=== PATIENT | male | born 1990 | race Caucasian/White ===

== ENCOUNTER 2024-04-21 07:16 | Emergency (ER) | payer OTHER, SELFPAY ==
--- NOTE | 2024-04-21 07:22 | ED.GENMED ---
History of Present Illness
General
Chief Complaint: Seizure
Time Seen by Provider: 04/21/24 07:21
History of Present Illness
History of Present Illness:
33 yo male presents from [facility] for evaluation after a witnessed seizure. Pt reportedly detoxing from methamphetamines, cocaine, opiates and ETOH. Last substance use yesterday. Pt was given 2mg IM lorazepam enroute to the hospital via EMS. On arrival
is AO x 3. Reports widespread myalgia, chest pain, SOB. No hx of seizures.
Review of Systems
Review of Systems
Allergies reviewed?: Yes
All Other Systems: ROS reviewed and negative except as documented in HPI and ROS
Phy Exam
Physical Exam
Physical Exam:
GEN: Thin with temporal/zygomatic wasting, NAD
HEENT: Oral mucosa moist, no scleral icterus, no nasal congestion
Cardiac: Tachycardic, no murmurs
Lung: No respiratory distress, no tachypnea, lungs CTAB
MSK: No gross deformity or injuries
Skin: Good color, no pallor or jaundice, no rashes
Neuro: AO x3; CN II-XII grossly intact. BUE strength 5/5 in all lacey, sensation intact and symmetric. BLE strength 5/5 in all lacey, sensation intact and symmetric. Mildly tremulous
Psych: Calm, cooperative
Course
Orders/Labs/Results
Orders:
Orders
04/21/24 07:22
EKG [Electrocardiogram (*1)] Urgent
Reason for Study: Tachycardia
04/21/24 07:23
EKG- Treatment ONCE
04/21/24 07:28
Lactated Ringers [Lr] 1,000 ml IV BOLUS
04/21/24 07:45
Complete Blood Count/With Diff Urgent
Comprehensive Metabolic Panel Urgent
Magnesium Urgent
Abnormal Lab Results
04/21/24
07:45
WBC 20.3 H 10^3/uL
(4.8-10.8)
RDW 14.6 H %
(11.5-14.5)
Plt Count 422 H 10^3/uL
(130-400)
Abs Immat Gran (auto) 0.1 H 10^3/uL
(0-0.05)
Absolute Neuts (auto) 16.8 H 10^3/uL
(1.4-6.5)
Absolute Monos (auto) 1.6 H 10^3/uL
(0.1-0.6)
Neutrophils % 82.8 H %
(42.2-75.2)
Lymphocytes % 8.8 L %
(20.5-51.1)
Creatinine 0.6 L mg/dL
(0.7-1.3)
Glucose 114 H mg/dl
(70-99)
04/21/24 07:45
04/21/24 07:45
Vital Signs
Initial and Last Documented VS:
Initial Vital Signs
Pulse Resp
110 19
04/21/24 07:22 04/21/24 07:22
Last Documented Vital Signs
Temp Pulse Resp BP Pulse Ox
98.4 F 118 35 134/86 100
04/21/24 07:23 04/21/24 11:00 04/21/24 10:00 04/21/24 11:00 04/21/24 07:26
MDM/Problems Addressed
MDM/Problems Addressed:
Pt remained stable in the ED with no further seizure activity. He remains mildly tachycardic however is not markedly hypertensive, diaphoretic or tremulous to suggest severe withdrawal. I did discuss with [facility] medical multani, pt is on detox/withdrawal
protocol with clonidine and clonazepam. At this time he is stable for correctional facility management, any further seizure activity would warrant hospitalization for more aggressive management
Comment
Comment:
EKG independently interpreted by me shows a sinus tachycardia at a rate of [address] changes concerning for ischemia, QTc of 450
*Critical Care Note
Total Time (30-74mins, 75-104mins- exclusive of procedures): Not Applicable
Update Note
Update Note:
Pt discussed with medical multani at [facility]. They can manage withdrawal detox in a limited manner, no ability to acquire phenobarbitol rapidly for home phenobarb taper. Pt will be observed in ED, if reoccurring seizure activity will admit for further
management
ED Attending Note
-
Portions of this chart may have been created with voice recognition software.� Occasional wrong word or��sound alike� substitutions may have occurred due to the inherent limitations of voice recognition software.
Discharge Plan
Departure
Patient Disposition: Home (Routine Discharge)
Date of Disposition: 04/21/24
Time of Disposition: 11:02
Patient with high blood pressure during this ER visit?: No
Discharge Problem:
Multiple substance withdrawal
Instructions: Drug Withdrawal ED
Referrals:
[facility] [Family Provider] -
Activity Restrictions/Additional Instructions:
Artemio will need to be admitted for any further seizure like activity
Interventions
Interventions:
*Risk Screen - Suicide Last Done: 04/21/24 07:31
*General Assessment Last Done: 04/21/24 07:29
*Neglect/Abuse Screening Last Done: 04/21/24 07:29
ED- Fall Risk Assessment Last Done: 04/21/24 07:31
*ED COVID-19 Vaccine History Last Done: 04/21/24 07:29
*Nursing Disposition Last Done: 04/21/24 11:19
ED- Cardiac Assessment Last Done: 04/21/24 07:33
ED- Neurological Assessment Last Done: 04/21/24 07:33
ED- Pulmonary Assessment Last Done: 04/21/24 07:34
Discharge Date and Time
Discharge Date/Time: 04/21/24 11:21
Print Language: MONTSERRATIAN
[2024-04-21 07:23] VITALS: BP 139/79
[2024-04-21 07:25] VITALS: BMI 19.5
[2024-04-21 07:26] VITALS: BP 139/79
[2024-04-21] MEDS: LR 1000 IV (07:47)
[2024-04-21 07:51] LABS: % Basophils 0.2 % (0-2); % Eosinophils 0.1 % (0-6); % Immature Granulocytes 0.4 % (0-0.5); % Lymphocytes 8.8 % (20.5-51.1); % Monocytes 7.7 % (1.7-9.3); % Neutrophils 82.8 % (42.2-75.2); Absolute Immature Granulocytes 0.1 10^3/uL (0-0.05); Absolute Lymphocytes 1.8 10^3/uL (1.2-3.4); Absolute Monocytes 1.6 10^3/uL (0.1-0.6); Absolute Neutrophils 16.8 10^3/uL (1.4-6.5); Hematocrit 40.4 % (39.0-52.0); Hemoglobin 13.7 g/dL (13.0-18.0); Mean Corp Hgb Conc. 33.9 g/dL (33.0-37.0); Mean Corpuscular Hgb 27.1 pg (27.0-31.0); Nucleated Red Blood Cells % 0 % (-); Platelet Count 422 10^3/uL (130-400); Red Blood Cell Count 5.05 10^6/uL (4.70-6.10); Red Cell Dist. Width 14.6 % (11.5-14.5); White Blood Cell Count 20.3 10^3/uL (4.8-10.8)
[2024-04-21 08:00] VITALS: BP 129/78
[2024-04-21 08:03] LABS: ALT (SGPT) 44 U/L (0-50); AST (SGOT) 39 U/L (17-59); Albumin 4.4 g/dl (3.5-5.0); Alkaline Phosphatase 116 U/L (38-126); Blood Urea Nitrogen 16 mg/dl (9-20); Calcium 10.1 mg/dl (8.4-10.2); Carbon Dioxide 27 mmol/L (22-30); Chloride 100 mmol/L (98-107); Estimated Creatinine Clearance > 125 ml/min; Glucose 114 mg/dl (70-99); Magnesium 1.8 mg/dl (1.6-2.3); Potassium 3.5 mmol/L (3.5-5.1); Sodium 137 mmol/L (135-145); Total Bilirubin 1.1 mg/dl (0.2-1.3); Total Protein 8.1 g/dl (6.3-8.2); eGFR > 60.00
[2024-04-21 09:00] VITALS: BP 146/87
[2024-04-21 10:00] VITALS: BP 131/84
[2024-04-21 11:00] VITALS: BP 134/86
== END 2024-04-21 11:21 | disposition home or self-care (01) ==
LOC: EMR 07:16
PROVIDERS: Physician Assistant; EMERGENCY PHYSICIAN Emergency Medicine
DX: F19.239 Other psychoactive substance dependence with withdrawal, unspecified (principal)
CPT/HCPCS: 99284; 96360; 80053; 83735; 85025; 93005

== ENCOUNTER 2024-04-21 20:40 | Inpatient (IN) | payer OTHER, SELFPAY ==
[2024-04-21] VITALS (10 sets, daily range): BP systolic 126–156; BP diastolic 68–93; BMI 20.3; BMI 19.1
--- NOTE | 2024-04-21 16:48 | ED.GENMED ---
History of Present Illness
General
Chief Complaint: Seizure
Source: patient, ambulance crew and other (Security guards)
Time Seen by Provider: 04/21/24 16:30
History of Present Illness
History of Present Illness:
33-year-old male was seen this morning after multiple seizures felt to be withdrawal related. Patient was stable and discharged back to the correction. Earlier this afternoon patient allegedly had 8-10 relatively brief seizures lasting 1 to 2 minutes
with a minimal postictal period. He returns to the ER for further evaluation. He was given 10 of Valium IM with resolution of the symptoms. He currently has no specific complaints except for feeling mildly jittery. He states he does you normally
use fentanyl and alcohol are his primary addiction issues.
Past History
Past History
ED Past Medical History: Other (Alcohol abuse. Substance abuse.)
ED Past Surgical History: Other (Exploratory laparotomy)
Review of Systems
Review of Systems
All Other Systems: Not applicable
Respiratory: Reports no symptoms
Cardiac: Reports no symptoms
ABD/GI: Reports nausea
Phy Exam
Physical Exam
Physical Exam:
GENERAL: Alert and oriented in no apparent distress. Thin. Mildly cachectic. Chronically ill-appearing. Normocephalic atraumatic
EYE: Orbits normal.
NECK: Supple, no thyroid palpable
ENT: Pharynx without erythema. No tongue biting
CARDIAC: Tachycardic and regular no murmur
LUNGS: Clear breath sounds,normal
ABDOMEN: Soft, without focal tenderness or distention
NEUROLOGICAL: Alert and oriented , grossly non-focal
SKIN: Warm and dry, erythema and swelling to the left second toe. Multiple tattoos
MUSCULOSKELETAL: No edema,no deformity.Good color
PSYCH: Relatively cooperative
Course
Orders/Labs/Results
Orders:
Orders
04/21/24 16:31
CT Head W/o Iv Contrast Urgent
Comment:
Reason For Exam: Recurrent seizures
Cardiac Monitoring- Treatment ONCE
Pulse Ox/cont/shift [RESP] Stat
Quantity: 1
04/21/24 16:33
Thiamine Injection 200 mg IV NOW STA
04/21/24 16:54
FOLic ACID [Folvite] 1 mg 0.9% Sodium Chloride 50 ml [Nss] 50 ml IV NOW
04/21/24 17:29
Fentanyl, Urine Urgent
Urine Drug Abuse Screen Urgent
Date Specimen was Collected: 04/21/24
Time Specimen was Collected: 17:26
04/21/24 18:20
Complete Blood Count/With Diff Urgent
04/21/24 18:24
0.9% Sodium Chloride 1000 ml [Nss] 1,000 ml IV BOLUS
04/21/24 18:46
Alcohol Urgent
Magnesium Urgent
Abnormal Lab Results
04/21/24 04/21/24
17:29 18:20
WBC 18.0 H 10^3/uL
(4.8-10.8)
RBC 4.68 L 10^6/uL
(4.70-6.10)
Hgb 12.9 L g/dL
(13.0-18.0)
Hct 35.6 L %
(39.0-52.0)
MCV 76.1 L fL
(80.0-94.0)
RDW 14.7 H %
(11.5-14.5)
Abs Immat Gran (auto) 0.1 H 10^3/uL
(0-0.05)
Absolute Neuts (auto) 14.1 H 10^3/uL
(1.4-6.5)
Absolute Monos (auto) 1.5 H 10^3/uL
(0.1-0.6)
Neutrophils % 78.4 H %
(42.2-75.2)
Lymphocytes % 12.1 L %
(20.5-51.1)
Urine Fentanyl Screen Positive H
(Negative)
U Benzodiazepines Scrn Positive H
(Negative)
04/21/24 18:20
Vital Signs
Initial and Last Documented VS:
Initial Vital Signs
Temp Pulse Resp BP
98.5 F 108 20 133/89
04/21/24 16:40 04/21/24 16:40 04/21/24 16:40 04/21/24 16:40
Last Documented Vital Signs
Temp Pulse Resp BP Pulse Ox
98.5 F 103 31 144/93 71
04/21/24 16:40 04/21/24 18:15 04/21/24 18:15 04/21/24 17:00 04/21/24 18:30
MDM/Problems Addressed
Differential Diagnosis Includes:
Discussed with neurology. Patient returns with recurring seizures. Will give folate thiamine fluids admit for further care. No antiepileptics at this time. Benzos for withdrawal.
*Radiology
Radiology exam reviewed: radiology read reviewed (Negative head CT)
*Pulse Oximetry
Patient hypoxic: no
*Inspector And Sorter Interpretation
Rate: tachycardiac
Interpretation: abnormal
Heart Rate: 110
Rhythm: sinus
*Critical Care Note
Total Time (30-74mins, 75-104mins- exclusive of procedures): Not Applicable
ED Attending Note
-
Portions of this chart may have been created with voice recognition software.� Occasional wrong word or��sound alike� substitutions may have occurred due to the inherent limitations of voice recognition software.
Discharge Plan
Departure
Patient Disposition: Admit
Date of Disposition: 04/21/24
Time of Disposition: 17:23
Presentation/result/management discussed w/ accepting MD/DO: Neurology
Discharge Problem:
Recurrent seizures, Multiple substance withdrawal, Cellulitis left second toe
Prescriptions:
No Action
quetiapine [Seroquel] 25 mg Tablet
25 mg PO DAILY
ascorbic acid (vitamin C) [Vitamin C] 1,000 mg Tablet
1,000 mg PO DAILY
clonidine HCl 0.1 mg Tablet
0.1 mg PO TID
ondansetron HCl [Zofran] 4 mg Tablet
4 mg PO TIDPRN PRN (Reason: nasuea)
thiamine HCl (vitamin B1) 100 mg Tablet
100 mg PO DAILY
Theragen Tablet
1 tab PO DAILY
diphenhydramine HCl [Benadryl] 25 mg Capsule
25 mg PO BID
clonazepam 2 mg Tablet
2 mg PO BID
folic acid 1 mg Tablet
1 mg PO DAILY
quetiapine [Seroquel] 50 mg Tablet
50 mg PO HS
magnesium oxide 400 mg magnesium Tablet
400 mg PO DAILY
diazepam [Valium] 5 mg/mL Syringe
10 mg MS ONCE
Referrals:
[facility] [Family Provider] -
Interventions
Interventions:
*Risk Screen - Suicide Last Done: 04/21/24 16:44
*General Assessment Last Done: 04/21/24 16:44
*Neglect/Abuse Screening Last Done: 04/21/24 16:44
ED- Fall Risk Assessment Last Done: 04/21/24 16:41
*ED COVID-19 Vaccine History Last Done: 04/21/24 16:43
ED- Cardiac Assessment Last Done: 04/21/24 16:47
ED- Neurological Assessment Last Done: 04/21/24 16:47
ED- Pulmonary Assessment Last Done: 04/21/24 16:47
Discharge Date and Time
Print Language: UKRAINIAN
[2024-04-21 17:50] LABS: Amphetamines Negative (Negative); Barbiturates Negative (Negative); Benzodiazepines Positive (Negative); Buprenorphine Negative (Negative); Cocaine Negative (Negative); Marijuana Negative (Negative); Methadone Negative (Negative); Methamphetamines Negative (Negative); Opiates Negative (Negative); Phencyclidine Negative (Negative); Tricyclic Antidepressants Negative (Negative)
[2024-04-21] MEDS: FOLVITE 50.2000000000000028 MG IV (18:23)
[2024-04-21] MEDS: THIAMINE INJECTION 200 MG IV (18:23)
[2024-04-21] MEDS: NSS 1000 IV ×2 (18:24→21:37)
[2024-04-21 18:25] LABS: Fentanyl, Urine Positive (Negative)
[2024-04-21 18:32] LABS: % Basophils 0.3 % (0-2); % Eosinophils 0.2 % (0-6); % Immature Granulocytes 0.5 % (0-0.5); % Lymphocytes 12.1 % (20.5-51.1); % Monocytes 8.5 % (1.7-9.3); % Neutrophils 78.4 % (42.2-75.2); Absolute Basophils 0.1 10^3/uL (0-0.2); Absolute Immature Granulocytes 0.1 10^3/uL (0-0.05); Absolute Lymphocytes 2.2 10^3/uL (1.2-3.4); Absolute Monocytes 1.5 10^3/uL (0.1-0.6); Absolute Neutrophils 14.1 10^3/uL (1.4-6.5); Hematocrit 35.6 % (39.0-52.0); Hemoglobin 12.9 g/dL (13.0-18.0); Mean Corp Hgb Conc. 36.2 g/dL (33.0-37.0); Mean Corpuscular Hgb 27.6 pg (27.0-31.0); Mean Corpuscular Volume 76.1 fL (80.0-94.0); Nucleated Red Blood Cells % 0 % (-); Platelet Count 376 10^3/uL (130-400); Red Blood Cell Count 4.68 10^6/uL (4.70-6.10); Red Cell Dist. Width 14.7 % (11.5-14.5)
--- NOTE | 2024-04-21 18:57 | PTCARENOTE ---
Correction guards called RN into room and stated pt is having a seizure. RN in room to check on pt. Pt mildly shaking. Telemonitor showing ST 90-100's. RN asked pt his name and and pt answered correctly. RN asked pt to straiten arm for lab
draw which he did without trouble. MD and oncoming RN made aware. Will continue to monitor. 2 Guards at bedside.
[2024-04-21 19:21] LABS: Magnesium 1.8 mg/dl (1.6-2.3)
[2024-04-21 19:25] LABS: Alcohol None Detected
[2024-04-21] MEDS: ANCEF 10 IV (19:29)
--- NOTE | 2024-04-21 19:51 | EDRN ---
corrections called rn to room and stated pt is having another seizure. this rn, charge entry specialist and hospitalist entered room to find pt mildly shaking having 'seizure-like' activity on his left side. pt immediately stopped shaking when his name was called
and looked at this rn. tele monitor showed sinus tach 100-110's, pt did not lose control of his bladder or bowel, did not bite tongue, and answering questions appropriately. hospitalist at bedside and present for event. 2 corrections officers remain
at bedside, awaiting admission orders.
--- NOTE | 2024-04-21 20:15 | HPS.HSE ---
Family Physician
-
Family Physician: Facility [facility]
Chief Complaint
-
Seizures
History of Present Illness
33-year-old man who came to the ER this morning after multiple seizures felt to be withdrawal related. He was initially made stable and was then discharged back to the snf. Then in snf, this afternoon, it was reported that he had 8-10
relatively brief seizures lasting 1 to 2 minutes with a minimal postictal period. He was returned to the ER for further evaluation. In the ED, he was given 10 of Valium IM with initial resolution of the symptoms. He stated to the ER staff that he
does you normally use fentanyl and that alcohol are his primary addiction issues. At the time of my interview, he was nervous, covering himself with the blanket. He had a shaking episode in the room that appeared volitional. When his hand was
dropped, he protected his face. He did not appear to be pos-ictal.
Medical History
Past Medical History
Past Medical History: Reports Other
Additional Past Medical History:
Alcohol abuse.
Substance abuse
Exploratory laparotomy
Past Surgical History: Reports Other
Additional Past Surgical History:
See above
Social History
Unable to obtain full social history at this time due to: Acuity
Family History
Family History: Not pertinent
Allergies / Home Medications
Allergies reflects when Allergies were last updated in [employer].
Home Medications with original date entered in [employer]
Allergy/Medication List:
Allergies
Allergy/AdvReac Type Severity Reaction Status Date / Time
haloperidol [From Haldol] Allergy Unknown Verified 04/21/24 07:18
Home Medications
ascorbic acid (vitamin C) 1,000 mg tablet (Vitamin C) 1,000 mg PO DAILY 04/21/24
clonazepam 2 mg tablet 2 mg PO BID 04/21/24
clonidine HCl 0.1 mg tablet 0.1 mg PO TID 04/21/24
diazepam 5 mg/mL injection syringe 10 mg OR ONCE 04/21/24
diphenhydramine HCl 25 mg capsule (Benadryl) 25 mg PO BID 04/21/24
folic acid 1 mg tablet 1 mg PO DAILY 04/21/24
magnesium oxide 400 mg PO DAILY 04/21/24
ondansetron HCl 4 mg tablet 4 mg PO TIDPRN PRN nasuea 04/21/24
quetiapine 25 mg tablet (Seroquel) 25 mg PO DAILY 04/21/24
quetiapine 50 mg tablet (Seroquel) 50 mg PO HS 04/21/24
therapeutic multivitamin 1 tab PO DAILY 04/21/24
thiamine HCl (vitamin B1) 100 mg tablet 100 mg PO DAILY 04/21/24
Review of Systems
-
Unable to obtain full review of systems at this time due to: Acuity
Physical Exam
Vital Signs
Vital Signs
Temp Pulse Resp BP Pulse Ox
98.5 F 104 34 142/93 71
04/21/24 16:40 04/21/24 20:00 04/21/24 20:00 04/21/24 20:00 04/21/24 18:30
Physical Exam
General: Well Developed, Appears in Distress and Appears Chronically Ill
HEENT: Nose Appears Normal and Ears Appear Normal
Respiratory: Clear
Cardiac: S1/S2, Regular Rhythm and Tachycardia
GI: Soft, Non Tender and Non Distended
Musculoskeletal: No Clubbing, No Cyanosis and No Edema
Skin: Warm and Dry
Neuro: Awake
Psych: Anxious
Laboratory Results
-
04/21/24 18:20
Data Reviewed
-
Lab Data: Labs Reviewed by me
Impression/Plan
-
IMPRESSION:
33 man with reported several seizures, h/o alcohol and substance abuse.
PLAN:
1. Seizures. Likely from withdrawal.
CIWA protocol
ICU admit
Re-eval in am
Neuro consult in am
2. WBC of 18.0 - likely reactive
Follow closely for signs of infection
Re-check in am
Full code (no capacity to discuss code status)
VCD for DVTp
[2024-04-21] MEDS: CATAPRES 0.100000000000000006 MG PO (21:42)
[2024-04-21] MEDS: SEROQUEL 50 MG PO (21:43)
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
[2024-04-22] VITALS (23 sets, daily range): BP systolic 123–150; BP diastolic 68–98; BMI 18.0
--- NOTE | 2024-04-22 01:08 | PTCARENOTE ---
No seizure activity observed.
--- NOTE | 2024-04-22 01:20 | PTCARENOTE ---
sheriff officer out to nurses station to request RN at bedside. Patient observed in bed 'shaking' in upper half of body. Left arm positioned over eyes. When attempting to remove arm from face, patient resisting. Patient talking to RN in normal
tone. Requesting food. Vitals stable.
--- NOTE | 2024-04-22 03:36 | PTCARENOTE ---
Patient c/o pain in left upper back. Scabs observed to be scratched open. Site firm/round/tender. Redness marked to monitor spread. DRY CHAIN PULLER notified. WOC consult placed. AM labs sent.
[2024-04-22 03:49] LABS: Hematocrit 37.4 % (39.0-52.0); Hemoglobin 12.6 g/dL (13.0-18.0); Mean Corp Hgb Conc. 33.7 g/dL (33.0-37.0); Mean Corpuscular Hgb 27.3 pg (27.0-31.0); Mean Corpuscular Volume 81.1 fL (80.0-94.0); Mean Platelet Volume 8.1 fL (7.4-10.4); Platelet Count 349 10^3/uL (130-400); Red Blood Cell Count 4.61 10^6/uL (4.70-6.10); Red Cell Dist. Width 14.6 % (11.5-14.5); White Blood Cell Count 15.6 10^3/uL (4.8-10.8)
[2024-04-22] MEDS: NSS 1000 IV ×2 (03:51→11:37)
[2024-04-22 04:01] LABS: INR 1.12; PT 14.2 Sec (11.4-14.6)
[2024-04-22 04:07] LABS: Blood Urea Nitrogen 9 mg/dl (9-20); Calcium 9.1 mg/dl (8.4-10.2); Carbon Dioxide 25 mmol/L (22-30); Chloride 106 mmol/L (98-107); Creatine Phosphokinase 412 U/L (55-170); Estimated Creatinine Clearance > 125 ml/min; Glucose 96 mg/dl (70-99); Potassium 3.8 mmol/L (3.5-5.1); Sodium 138 mmol/L (135-145); eGFR > 60.00
--- NOTE | 2024-04-22 07:22 | W.PN.HOSP.TC ---
Addendum entered and electronically signed by Paula Hitchcock MD 04/22/24 18:58:
Patient seen and examined independently--agree with plan set forth by Dr. Mason
GENERAL: thin, underweight male in no apparent distress--sleepy
HEENT: NC/AT
HEART: regular rate and rhythm, +S1, +S2, tachycardic
LUNGS : clear to auscultation bilaterally
ABDOM: soft, nontender, nondistended, + bowel sounds
EXT: no cyanosis, clubbing, or edema
NEUROLOGIC: sleepy, minimally interactive (nursing reports just received medications prior my visit)
Suspected seizure activities---Most likely polysubstance withdrawal, UDS positive for fentanyl and benzos---Head CT unremarkable--apprec neuro input, continuous EEG pending--Stop clonazepam, clonidine, diazepam, quetiapine-- continue folic acid and
thiamine, MSAS protocol-Pulmonology assessment and recs appreciated
Mild leukocytosis on admission, WBC of 18.0 - likely reactive--CXR unremarkable--Patient afebrile, vitals WNL.
Mild rhabdomyolysis--CPK 412--from presumed seizures
Full code (no capacity to discuss code status)
DVT prophylaxis: SCD
Original Note:
Today's Communication/Plan
-
Continuous EEG
Folic acid and thiamine continue
Discontinue detox protocol OFFICE MANAGER RECEPTIONIST
MSAS protocol
Assessment / Plan
Assessment / Plan
Assessment: 33 man with reported several seizures, h/o alcohol and substance abuse.
33-year-old male with history of multiple substance abuse (opioid, alcohol, cocaine, benzos) who was seen initially at the ED on a.m. of 04/21 s/p witnessed seizure activities, s/p 2 mg IM lorazepam and subsequently discharged back to the assisted
from the assisted. Was on detox protocol with clonidine and clonazepam at the medical multani of [facility] OFFICE MANAGER RECEPTIONIST. However, UDS positive for fentanyl and benzos, no EtOH.
Impression/Plan:
Suspected sz activity vs malingering
Leukocytosis on adm, improving
Resolved mild thrombocytosis
Mildly elevated CK
UDS positive for fentanyl and bzd
ETOH serum level not detected
Suspected seizure activities.
-Most likely polysubstance withdrawal, UDS positive for fentanyl and benzos.
-Head CT unremarkable
-Continuous EEG per neurology
-Stop clonazepam, clonidine, diazepam, quetiapine, continue folic acid and thiamine.
-MSAS protocol
-Neurology assessment and recs appreciated
-Pulmonology assessment and recs appreciated
-Transfer to telemetry and monitor overnight.
Mild leukocytosis on admission, WBC of 18.0 - likely reactive
-Likely reactive, CXR unremarkable.
-Patient afebrile, vitals WNL.
-CBC and BMP in a.m.
Full code (no capacity to discuss code status)
DVT prophylaxis: SCD
Anticipated Discharge: Within 24 hours
Subjective/Interval History
-
Date of Service: April 22, 2024
Objective Data
-
Labs:
Laboratory Results
04/22/24
03:34
WBC 15.6 H
Hgb 12.6 L
Hct 37.4 L
Plt Count 349
PT 14.2
INR 1.12
Sodium 138
Potassium 3.8
Chloride 106
Carbon Dioxide 25
BUN 9
Creatinine 0.6 L
Glucose 96
Calcium 9.1
Vital Signs:
Tmax 24 HRS
04/21/24
23:25
Temp 98.3 F
Vital Signs
Temp Pulse Resp BP Pulse Ox
98.4 F 84 36 143/84 100
04/22/24 03:14 04/22/24 06:00 04/22/24 06:00 04/22/24 06:00 04/22/24 06:00
I&O
04/21/24 04/22/24 04/23/24
06:59 06:59 06:59
Intake Total 2069
Output Total 2449
Balance -380 / -380
Review of Systems
-
History Source: Patient
All other systems: Not reviewed unless documented
Constitutional: Reports No Symptoms; Denies Fever, Fatigue or Chills
EENT: Reports No Symptoms Reported
Respiratory: Reports No Symptoms; Denies Cough or Trouble Breathing
Cardiac: Reports No Symptoms; Denies Chest Pain or Palpitations
Abdomen/GI: Reports No Symptoms; Denies Abdominal Pain, Nausea, Vomiting, Diarrhea or Constipated
Genitourinary: Reports No Symptoms
Musculoskeletal: Reports No Symptoms
Skin: Reports No Symptoms
Neuro: Reports Seizures
Endocrine: Reports No Symptoms
Hematologic / Lymphatic: Reports No Symptoms
Physical Exam
-
General: Well Developed, No Apparent Distress and Comfortable; Negative Respiratory Distress
HEENT: Normocephalic, Atraumatic and Moist Mucous Membranes
Respiratory: Clear to Auscultation
Cardiac: Regular Rhythm and S1/S2; Negative Murmur, Rub or Gallop
GI: Soft, Nontender, Nondistended and Normal Bowel Sounds; Negative Organomegaly
Rectal: Deferred by Provider
Musculoskeletal: No Clubbing, No Cyanosis and No Edema
Skin: Warm; Negative Rash
Neuro: Awake, Alert, Oriented, AO x 3 and Nonfocal/Grossly Intact
Psych: Calm
Data Reviewed
-
CT Scan: Image personally visualized and interpreted, Report Reviewed by me and Discussed with Physician
Labs: Labs Reviewed by me and Discussed with Physician
Old Records: Reviewed
--- NOTE | 2024-04-22 07:50 | CON.INTV ---
Consultation
Consultation Request
Date/Time Consultation Requested: 04-22-24
Date/Time Consultation Performed: 04-22-24
Requesting Provider: Hospitalist Jennifer
Performing Provider: Dr Salcido
Reason for Consultation: suspected sz activity
Medical History
-
Chief Complaint: suspected sz activity
History of Present Illness:
Mr Artemio Judd is a 33/M adm from long term on 04-21 for suspected recurrent sz activity witnessed by correctional personnel, reportedly 8-10 brief shaking episodes of about 1-2 min and with minimal postictal period. Two correctional officers at
bedside were not present at time of events at long term, they report patient is an inmate since 04-19.
Patient has a h/o substance abuse with reported use of ETOH, methamphetamines, cocaine and opiates, reportedly last use of substance(s) on day prior to incarceration.
Seen at ER in early AM 04-21, EMS administered 2 mg IM lorazepam in route with resolution shaking activity, returned to long term. Brought back to ER on evening of 04-21 for recurrent symptoms, given valium 10 mg IM by EMS in route to ER, showed
resolution of symptom. At ER, witnessed shaking episode that appeared volitional, when his hand was dropped, he protected his face, did not appear in pos-ictal state. First DH adm
Past Medical History
Past Medical History: Other (see A&P for PMH/PSH)
Social History
Tobacco: Former Smoker
Alcohol: Daily
Drug: Cocaine and Other (bzd, methamphetamines)
Personal: Single
Living: [facility]
Employment: Not Employed
Family History
Family History: Unable to Obtain (poor historian)
Allergies / Home Medications
Allergies
Allergy/AdvReac Type Severity Reaction Status Date / Time
haloperidol [From Haldol] Allergy Unknown Verified 04/21/24 07:18
Home Medications
�Medication �Instructions �Recorded �Confirmed �Last Taken �Type
ascorbic acid (vitamin C) 1,000 mg 1,000 mg PO DAILY 04/21/24 04/21/2424 History
tablet (Vitamin C)
clonazepam 2 mg tablet 2 mg PO BID 04/21/24 04/21/24 04/21/24 History
clonidine HCl 0.1 mg tablet 0.1 mg PO TID 04/21/24 04/21/24 04/20/24 History
diazepam 5 mg/mL injection syringe 10 mg NH ONCE 04/21/24 04/21/24 04/21/24 History
diphenhydramine HCl 25 mg capsule 25 mg PO BID 04/21/24 04/21/24 04/21/24 History
(Benadryl)
folic acid 1 mg tablet 1 mg PO DAILY 04/21/24 04/21/24 04/21/24 History
magnesium oxide 400 mg PO DAILY 04/21/24 04/21/24 04/21/24 History
ondansetron HCl 4 mg tablet 4 mg PO TIDPRN PRN nasuea 04/21/24 04/21/24 04/20/24 History
quetiapine 25 mg tablet (Seroquel) 25 mg PO DAILY 04/21/24 04/21/24 04/21/24 History
quetiapine 50 mg tablet (Seroquel) 50 mg PO HS 04/21/24 04/21/24 04/20/24 History
therapeutic multivitamin 1 tab PO DAILY 04/21/24 04/21/24 04/21/24 History
thiamine HCl (vitamin B1) 100 mg 100 mg PO DAILY 04/21/24 04/21/24 04/21/24 History
tablet
Review of Systems
-
Unable to Obtain full review of systems at this time due to: Other (poor historian, not interested in participate fully on interview, marginal cooperation with P/E)
Vitals / Labs / Diagnostic Testing
Vital Signs
Temp Pulse Resp BP Pulse Ox
98.9 F 84 36 143/84 100
04/22/24 07:31 04/22/24 06:00 04/22/24 06:00 04/22/24 06:00 04/22/24 06:00
Lab Data
04/22/24 03:34
04/22/24 03:34
Laboratory Results
04/22/24
03:34
PT 14.2
INR 1.12
Diagnostic Testing:
Physical Exam
-
HEENT: Normocephalic and Moist Mucous Membranes
Cardiovascular: Regular Rhythm, Murmur (n), Peripheral Edema (n), Calf Tenderness (n) and JVD (n)
Respiratory: Clear and Non-Labored Respirations
GI: Soft, Non Distended and Non Tender
Neurology: Oriented, No Motor Deficits and Other (sleepy, arousable)
Skin: Warm
General: Respiratory Distress (n)
Assessment
-
Assessment:
Mr Artemio Judd is a 33/M adm from long term on 04-21 for suspected sz activity witnessed by correctional personnel, reportedly 8-10 brief shaking episodes of about 1-2 min and with minimal postictal period. Two correctional officers at bedside were
not present at time of events at long term, they report patient is an inmate since 04-19. He has a h/o substance abuse with reported use of ETOH, methamphetamines, cocaine and opiates, reportedly last use of substance(s) on day prior to incarceration.
Seen at ER in early AM 04-21, EMS administered 2 mg IM lorazepam in route with resolution shaking activity, returned to long term. Brought back to ER on evening of 04-21 for recurrent symptoms, given valium 10 mg IM by EMS in route to ER, showed
resolution of symptom. At ER, witnessed shaking episode that appeared volitional, when his hand was dropped, he protected his face, did not appear in pos-ictal state. First DH adm
Impression:
Suspected sz activity vs malingering
Leukocytosis on adm, improving
Resolved mild thrombocytosis
Mildly elevated CK
UDS positive for fentanyl and bzd
ETOH serum level not detected
Conditions [employer]ING:
Substance abuse: ETOH, methamphetamines, cocaine and opiates
Plan:
Adm to ICU for suspected sz activity
Remains afebrile, hemodyn and resp porras stable
Keep asp precs
On clonazepam, clonidine, dizepam, quetiapine [employer], continue
IVFs
Portable CXR negative
Head CT s/c negative for acute findings
Neurology consulted, d/w Dr Crook, low suspicion for sz activity
Will check EEG for completeness
Observe off atbs
Expecting transfer to [facility] per [facility] report, will sign off upon transfer
No critical care time charged today
--- NOTE | 2024-04-22 08:04 | PTCARENOTE ---
Pt had 10sec period of shaking. Respiratory rate 40 at that time. No postictal state. PERRL. MSAS 1 (d/t HR)
[2024-04-22] MEDS: VITAMIN C 1000 MG PO (08:24)
[2024-04-22] MEDS: BENADRYL 25 MG PO (08:24)
[2024-04-22] MEDS: THERAGRAN 1 TABLET PO (08:24)
[2024-04-22] MEDS: CATAPRES 0.100000000000000006 MG PO (08:24)
[2024-04-22] MEDS: SEROQUEL 25 MG PO (08:24)
[2024-04-22] MEDS: VITAMIN B1 100 MG PO (08:24)
[2024-04-22] MEDS: MAGNESIUM OXIDE 500 MG PO (08:24)
[2024-04-22] MEDS: FOLVITE 1 MG PO (08:24)
[2024-04-22] MEDS: KLONOPIN 2 MG PO (08:24)
--- NOTE | 2024-04-22 08:25 | CON.NEURO4 ---
Consultation - Neurology 4
-
CONSULTING PHYSICIAN: Siena Crook
REFERRING PHYSICIAN: Hospitalist
DICTATED BY: Siena Crook
DATE/TIME OF REQUEST: 04/22/24
DATE/TIME OF CONSULTATION: 04/22/24
Reason for Consultation: Concern for seizures
History of Present Illness:
The patient is a 33-year-old male with a history of opioid and alcohol abuse who presented to hospital initially with an ED visit on 04/21 after witnessed seizure activity. He was given 2 mg IM lorazepam and upon arrival in the ER reported muscle
pains but was awake and alert with normal mental status. He had been on a detox protocol with clonidine and clonazepam at the [facility].
Patient was discharged back to [facility] and represented later in the day with report of multiple brief seizure episodes around 8-10 which are short lasting and with minimal postictal confusion afterwards. Patient is been
incarcerated since approximately 04/19. History of substance abuse has been with alcohol, amphetamines, cocaine and fentanyl.
Per admitting hospitalist appeared to have seizure-like activity which did not appear physiologic as patient consistently guarded his face from hand dropping on his head.
Patient currently not very awake or interactive but will obey simple commands most of his verbal output is unintelligible.
Past Medical History: Opioid and alcohol abuse
Surgical History: Exploratory laparotomy
Family History: Unknown
Social History: Unknown, presents from incarceration
Allergies: Haloperidol
Review of Symptoms:
Patient denies any fever, headache, chest pain, shortness of breath, GI or symptoms.
Physical Exam:
Thin young middle-age man no overt distress no signs of head or neck trauma, neck with no masses, mouth with no bleeding or obvious deformity or lacerations of the lips, heart rate is regular breathing is unlabored abdomen is soft nontender no lower
extremity edema or joint dislocation seen
Neurologic Examination:
Patient is awake and will inconsistently obey simple commands such as sticking out the tongue, he will answer some simple yes/no questions but much of his speech is unintelligible, does not open eyes to command but is clearly awake
Cranial nerve examination shows pupils 3 to 4 mm equal round react light bilaterally resting gaze midline with no gaze deviation seen extraocular movements are full, face is grossly symmetric tongue is midline
Motor examination shows consistent ability to avoid hitting the face when arms are held above his head bilaterally, moving spontaneously in all extremities in a symmetric manner. Normal muscle tone and bulk. No tremor or abnormal movement.
Reflexes 2+ and symmetric biceps triceps brachialis patella and Achilles Babinski is negative
Unable to assess coordination or gait
Neuro Imaging: CT head non contrast no abnormalities seen
Impressions
1. Polysubstance abuse with the potential for withdrawal
2. Seizure activity suspicious for nonepileptic events although withdrawal from alcohol reproduce alcohol withdrawal seizures
3. Current mental status could be partly due to sedative medication from benzodiazepine versus nonphysiologic behavioral issue
Recommendations:
1. Continuous EEG monitoring to guide use of any lorazepam for seizure activity
2. Folic acid and thiamine acceptable for p.o.
3. Monitor for alcohol withdrawal
4. Symptomatic treatment for other forms of drug withdrawal
5. Not recommending any long-term antiseizure medications
6. Not recommending any further brain imaging
Discussed patient care with: ICU nurse and physician, patient
[2024-04-22] MEDS: ATIVAN 1 MG PO (18:01)
--- NOTE | 2024-04-22 18:20 | PTCARENOTE ---
Pt reporting nausea. Pt ate 100% of all meals today and several gingerales. Reports feeling very hot. Temp 98.4. MSAS 7. PRN PO Ativan given per order. Pt reports feeling better and asking for more food at this time.
--- NOTE | 2024-04-22 21:44 | PTCARENOTE ---
Patient pulled continuous EEG off. Found sitting on side table.
[2024-04-23] VITALS: BP 138/100
[2024-04-23 02:00] VITALS: BP 135/85
--- NOTE | 2024-04-23 03:39 | PTCARENOTE ---
Addendum entered by Elo Daly RN 04/23/24 03:59:
Patient in better spirits after hygiene. Only concern is wound on left back and left second toe. Will pass along to day shift.
Original Note:
Patient talking with RN overnight. When assessed, RN stated lung sounds were clear. Patient stating 'that's not good' and he 'can't go back to [facility]'. Anxious requiring emotional support throughout shift. Around 0330, correctional officers notifying
RN that patient might be having a seizure. Patient in bed with blanket over head. No seizure activity observed. Patient encouraged to sit at side of bed and perform hygiene. Provided basin for bath and supplies for mouth care.
[2024-04-23 04:00] VITALS: BP 129/90
[2024-04-23 04:48] LABS: Hematocrit 41.4 % (39.0-52.0); Hemoglobin 13.8 g/dL (13.0-18.0); Mean Corp Hgb Conc. 33.3 g/dL (33.0-37.0); Mean Platelet Volume 9.2 fL (7.4-10.4); Platelet Count 238 10^3/uL (130-400); Red Blood Cell Count 5.11 10^6/uL (4.70-6.10); Red Cell Dist. Width 14.4 % (11.5-14.5); White Blood Cell Count 12.8 10^3/uL (4.8-10.8)
[2024-04-23 04:59] LABS: Blood Urea Nitrogen 9 mg/dl (9-20); Calcium 9.8 mg/dl (8.4-10.2); Carbon Dioxide 22 mmol/L (22-30); Chloride 105 mmol/L (98-107); Estimated Creatinine Clearance > 125 ml/min; Glucose 118 mg/dl (70-99); Sodium 138 mmol/L (135-145); eGFR > 60.00
[2024-04-23 06:00] VITALS: BP 138/93
--- NOTE | 2024-04-23 06:25 | W.PN.NEURO.1 ---
Today's Communication / Plan
-
-Can come off continuos EEG
-No indications for antiseizure medications
-monitor for withdrawal signs
-No barriers to discharge from my POV
Neuro Assessment/Plan
Assessment
Highly likely to be non-epileptic events based on little to no post ictal state after generalized shaking multiple episodes, no tongue laceration, no significant vital sign abnormalities, and patient persistently protecting face from hand falling on
it by admitting hospitalist physician
EEG was normal, no events captured
CT head non contrast normal
Neurologic exam normal
Subjective/Objective
Subjective Data
Date of Service: April 23, 2024
No acute events, has some right toe numbness, says he has some shakiness
Objective Data
Vital Signs
Temp Pulse Resp BP Pulse Ox
97.7 F 92 28 138/93 100
04/23/24 03:08 04/23/24 06:00 04/23/24 06:00 04/23/24 06:00 04/22/24 20:45
Lab Results
04/23/24 04:37
04/23/24 04:37
PT 14.2 Sec (11.4-14.6) 04/22/24 03:34
INR 1.12 04/22/24 03:34
Sodium 138 mmol/L (135-145) 04/23/24 04:37
Potassium 4.0 mmol/L (3.5-5.1) 04/23/24 04:37
BUN 9 mg/dl (9-20) 04/23/24 04:37
Glucose 118 mg/dl (70-99) H 04/23/24 04:37
Calcium 9.8 mg/dl (8.4-10.2) 04/23/24 04:37
Ur Buprenorphine Negative (Negative) 04/21/24 17:29
Patient Allergies
haloperidol [From Haldol] Allergy (Verified 04/21/24 07:18)
Unknown
Review of Systems
-
History Source: Patient
All other systems: Reviewed and negative
Constitutional: No Symptoms
EENT: No Symptoms Reported
Respiratory: No Symptoms
Cardiac: No Symptoms
Abdomen/GI: No Symptoms
Genitourinary: No Symptoms
Musculoskeletal: No Symptoms
Skin: No Symptoms
Neuro: No Symptoms
Endocrine: No Symptoms
Hematologic / Lymphatic: No Symptoms
Allergy / Immunology: No Symptoms
Physical Exam
-
General: Well Developed
Eyes: No Ptosis
HEENT: Normocephalic and Other (No tongue lacerations)
Neck: No Bruits Bilaterally
Respiratory: Clear to Auscultation
Cardiac: Regular Rhythm
GI: Normal Bowel Sounds
Skin: Unremarkable
Extremities: No Clubbing
Psych: Unremarkable
Extended Neurological Exam
Mood & Affect: Mood Unremarkable and Affect Unremarkable
Attention Span & Concentration: Awake
Memory: Unremarkable
Tremor: Hand Tremor Absent
Involuntary Movement: None
Speech: Quality Unremarkable and Quantity Unremarkable; Negative Expressive Aphasia, Receptive Aphasia or Dysarthric
Cranial Nerve II: Left Eye: Pupillary Reactivity Unremarkable and Pupillary Size Unremarkable
Cranial Nerve II: Right Eye: Pupillary Reactivity Unremarkable and Pupillary Size Unremarkable
Cranial Nerves III, IV, : Extraocular Movement: Extraocular Movement Full in all Directions
Cranial Nerve VII: Facial Symmetry: Normal Facial Symmetry
Cranial Nerve VIII: Hearing: Unremarkable Hearing to Normal Conversational Volume
Muscle Strength, Overall: Full Throughout
Muscle Bulk & Tone: Bulk Unremarkable
Deep Tendon Reflexes: Trace Throughout
Touch Sensation: Unremarkable
Gait & Station: Unremarkable Arm Swing
Data Reviewed
-
CT Head: Report Reviewed and Image Reviewed
EEG: Report Reviewed
--- NOTE | 2024-04-23 07:21 | EEGC.RPT ---
Continuous EEG Report
Recording
Start Date of Data Reviewed: 04/22/24
Start Time of Data Reviewed: 12:07
End Date of Data Reviewed: 04/23/24
End Time of Data Reviewed: 07:22
Done with Video Recording: Yes
Study Sequence: Initiation of Study
Electrocardiogram: Unremarkable
Report
24 HOUR CONTINUOUS EEG REPORT
24 HOUR CONTINUOUS EEG INTERPRETATION:
Normal study for age in wakefulness and light sleep
CLINICAL CORRELATION:
A normal EEG does not rule out the diagnosis of epilepsy.�� Patient did not demonstrate any clinical activities consistent with potential seizures during the study.
METHODS:
A 21 channel digitized electroencephalogram (EEG) was performed at the bedside in the intensive care unit.� The 10/20 international system of electrode placement was used.� ECG was monitored.� Video was recorded. Study lasted approximately 19 hours.
ELECTROENCEPHALOGRAPHER IMPRESSION(S):
Quality
Good in beginning, excessive motion artifact prohibits much interpretation after 1 hour and 54 minutes and then leads come off later in the study
Background
Medium amplitude mix of theta and alpha frequencies
Normal posterior dominant rhythm of 9-10 hz seen which attenautes with eye opening
No background asymmetry
Sleep
Drowsiness demonstrated by attenuation of the background rhythm
ECG:
Normal sinus rhythm
Abnormal EEG activity:
None, no interictal epileptiform discharges. No events of abnormal behavior or movements
Persyst Review:
Yeison files: Failed to demonstrate abnormalities
[2024-04-23] MEDS: FOLVITE 1 MG PO (07:51)
[2024-04-23] MEDS: VITAMIN B1 100 MG PO (07:51)
[2024-04-23 08:00] VITALS: BP 124/71
--- NOTE | 2024-04-23 08:00 | PTCARENOTE ---
Received pt awake and alert.Speech is appropriate.+KIM.c/o general discomfort that does doesn't require pain meds as per pt.SR-ST.Right midline intact.POX 97% on RA.Appetite excellent.Voiding yellow urine.Skin integrity as documented.Plan of care
discussed.Pt is a forensic pt.
[2024-04-23 10:00] VITALS: BP 146/90
--- NOTE | 2024-04-23 10:16 | CM ---
CM following re: discharge planning.
Reviewed pt's chart, met with pt and 2 guards at bedside.
Pt is a 33 year old male, admitted with primary dx of Suspected sz activity vs malingering
Pt is admitted from [facility] and pt will return back to [facility] when medically stable.
Discharge order noted. Guards are aware and they will transport pt back to [facility].
[facility] nursing report: [phone]
Discharge instructions fax: [phone]
D/C plan: return back to [facility]. Guards to transport.
[2024-04-23 11:01] VITALS: BMI 18.0
--- NOTE | 2024-04-23 11:14 | PTCARENOTE ---
Report to [facility] staff Elana.
--- NOTE | 2024-04-23 11:54 | PTCARENOTE ---
Right midline discontinued bu VAT RN.
--- NOTE | 2024-04-23 14:02 | W.PN.HOSP.TC ---
Today's Communication/Plan
-
d/c to correction facility
Assessment / Plan
Assessment / Plan
Assessment: 33 man with reported several seizures, h/o alcohol and substance abuse.
33-year-old male with history of multiple substance abuse (opioid, alcohol, cocaine, benzos) who was seen initially at the ED on a.m. of 04/21 s/p witnessed seizure activities, s/p 2 mg IM lorazepam and subsequently discharged back to the long-term
from the long-term. Was on detox protocol with clonidine and clonazepam at the [facility]. However, UDS positive for fentanyl and benzos, no EtOH.
Impression/Plan:
Suspected sz activity vs non epileptic activity
Polysubstance abuse
Alcohol/drug withdrawal
Leukocytosis, presumed reactive
Thrombocytosis, resolved
Mildly elevated CPK
-Most likely polysubstance withdrawal, UDS positive for fentanyl and benzos.
-Head CT unremarkable
-Continuous EEG monitoring done and no signs of true epileptogenic activity
-No signs of withdrawal from opiate/alcohol at this point
-Reactive leukocytosis normalized
-Likely reactive, CXR unremarkable.
Full code (no capacity to discuss code status)
DVT prophylaxis: SCD
More than 30 minutes spent in discharge including
Final examination of the patient
Summarizing hospital stay
Instructions for continuing care to all relevant caregivers
Preparation of discharge records, prescriptions, and referral forms
Total time spent (in minutes): 38 mins
Anticipated Discharge: Today
Subjective/Interval History
-
Date of Service: April 23, 2024
No reported seizure episode
No other acute events
Objective Data
-
Labs:
Laboratory Results
04/23/24
04:37
WBC 12.8 H
Hgb 13.8
Hct 41.4
Plt Count 238 D
Sodium 138
Potassium 4.0
Chloride 105
Carbon Dioxide 22
BUN 9
Creatinine 0.5 L
Glucose 118 H
Calcium 9.8
Vital Signs:
Vital Signs
Temp Pulse Resp BP Pulse Ox
98.9 F 99 26 146/90 97
04/23/24 11:00 04/23/24 10:45 04/23/24 10:30 04/23/24 10:00 04/23/24 08:00
I&O
04/22/24 04/23/24 04/24/24
06:59 06:59 06:59
Intake Total 2070 / 2070 5500 / 5500 960 / 960
Output Total 2450 / 2450 6500 / 6500 1025 / 1025
Balance -380 / -380 -1000 / -1000 -65 / -65
Review of Systems
-
Respiratory: Reports No Symptoms
Cardiac: Reports No Symptoms
Abdomen/GI: Reports No Symptoms
Physical Exam
-
General: Well Nourished and Comfortable
HEENT: Negative Oxygen
Respiratory: Clear to Auscultation
Cardiac: Regular Rhythm and S1/S2; Negative Irregular Rhythm
GI: Soft, Nontender and Nondistended
Musculoskeletal: No Edema
Neuro: Awake, Alert and Oriented
--- NOTE | 2024-04-24 07:46 | W.DCSUMMARY ---
Discharge Summary
Discharge Data
Date of Admission: 04/21/24
Date of Discharge: 04/23/24
-
Pending Results: No
Hospital Course
Discharging Physician : Dr Gutierrez Gallegos
Disposition : Correction facility
Primary care physician : [facility]
Principal Discharge diagnosis :
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
Reactive leukocytosis
Reactive Thrombocytosis
mild rhabdomyolysis
Chronic Discharge diagnosis :
Polysubstance abuse
Alcohol use disorder
Hospital Course :
Patient is a 33-year-old male who was brought into ER after noted having multiple seizure activity and felt to having ongoing withdrawal from alcohol/polysubstance use. Patient was initially discharged back to correction and was started on regimen of
clonidine and/Tylenol over there although patient continued to have further episode and was sent in to ER again. Urine drug screen was positive for fentanyl. Alcohol was negative. Neurology was involved in care and patient was monitored in ICU
for concern of ongoing seizure-like activity. Patient was monitored on EEG and did not have any true seizure-like activity. Patient was monitored for drug and alcohol withdrawal although no signs of overt withdrawal this admission. Post medical
stabilization patient was discharged to correctional facility.
Important imaging findings :
None
Procedure findings :
None
Discharge Plan
-
Patient Disposition: [facility]
Discharge Diagnosis/Procedures: Suspected seizure from polysubstance withdrawal, Mild leukocytosis, Mild rhabdomyolysis
Condition: Good
Diet: As tolerated and Regular
Activity: As tolerated
Driving Restrictions: No driving
Bathing Restrictions: None
Referrals:
[facility] [Family Provider] - in less than 1 week
Prescriptions:
New
gabapentin [Neurontin] 100 mg capsule
100 mg PO BID Qty: 60 0RF
acetaminophen [Tylenol Extra Strength] 500 mg tablet
1,000 mg feeding tube Q8HPRN PRN (Reason: Mild mod pain) Qty: 60 0RF
ibuprofen [Advil] 200 mg tablet
600 mg PO Q8H PRN (Reason: Sev pain) Qty: 10 0RF
Rx Instructions:
AVOID USING CONTINUOSULY FOR MORE THAN 5 DAYS
Continued
thiamine HCl (vitamin B1) 100 mg Tablet
100 mg PO DAILY
folic acid 1 mg Tablet
1 mg PO DAILY
Discontinued
quetiapine [Seroquel] 25 mg Tablet
25 mg PO DAILY
ascorbic acid (vitamin C) [Vitamin C] 1,000 mg Tablet
1,000 mg PO DAILY
clonidine HCl 0.1 mg Tablet
0.1 mg PO TID
ondansetron HCl [Zofran] 4 mg Tablet
4 mg PO TIDPRN PRN (Reason: nasuea)
Theragen Tablet
1 tab PO DAILY
diphenhydramine HCl [Benadryl] 25 mg Capsule
25 mg PO BID
clonazepam 2 mg Tablet
2 mg PO BID
quetiapine [Seroquel] 50 mg Tablet
50 mg PO HS
magnesium oxide 400 mg magnesium Tablet
400 mg PO DAILY
diazepam [Valium] 5 mg/mL Syringe
10 mg KS ONCE
Discharge Orders:
Discharge Patient (As Directed); Ordered 04/23/24
Ordered By: Gutierrez Gallegos
Discharge Date and Time
Discharge Date/Time: 04/23/24 12:21
Print Language: ANDORRAN
== END 2024-04-23 12:21 | DRG 897 ==
LOC: ICU 20:40
PROVIDERS: Nurse Practitioner Primary Care; Student in an Organized Health Care Education/Training Program; ADMITTING PHYSICIAN Internal Medicine; ATTENDING PHYSICIAN Hospitalist; EMERGENCY PHYSICIAN Emergency Medicine; OTHER PHYSICIAN Internal Medicine Pulmonary Disease; OTHER PHYSICIAN Student in an Organized Health Care Education/Training Program
DX: F19.130 Other psychoactive substance abuse with withdrawal, uncomplicated (principal); M62.82 Rhabdomyolysis; R56.9 Unspecified convulsions; F10.10 Alcohol abuse, uncomplicated; D75.838 Other thrombocytosis; D72.829 Elevated white blood cell count, unspecified; L03.032 Cellulitis of left toe; Z88.8 Allergy status to other drugs, medicaments and biological substances; Z87.891 Personal history of nicotine dependence
CPT/HCPCS: 70450; 71045; 80048; 80306; 80307; 82077; 82550; 83735; 85025; 85027; 85610; 87070; 87147; 93005; 94760; 95714; 96361; 96374; 96375; 99285

== ENCOUNTER 2024-06-02 12:17 | Emergency (ER) | payer OTHER, SELFPAY ==
[2024-06-02 12:19] VITALS: BP 145/106
--- NOTE | 2024-06-02 12:46 | ED.GENMED ---
History of Present Illness
General
Chief Complaint: Musculo-Skeletal Complaint
Source: patient
Time Seen by Provider: 06/02/24 12:31
History of Present Illness
History of Present Illness:
Patient is a 34-year-old male with history of prior shoulder and hip dislocation presenting to the emergency department possible shoulder dislocation. Patient states that he was completing pull-ups when his hand slipped and he felt a pop in his
right shoulder. He felt like his shoulder dislocated and then relocated. He has dislocated his left shoulder and left hip in the past. He states that is currently back in place however he feels as if there is a lump to the posterior shoulder.
Some pain. No difficulty with range of motion. No numbness tingling. No weakness. He did not hit his head. He is not on any blood thinning medications.
Past History
Past History
ED Past Medical History: Other (Alcohol abuse. Substance abuse.)
ED Past Surgical History: Other (Exploratory laparotomy)
Phy Exam
Physical Exam
Physical Exam:
GENERAL: in no acute distress
HEENT: normocephalic, extraocular movements intact, moist oral mucosa
NECK: normal inspection
RESPIRATORY: no respiratory distress, clear to auscultation bilaterally
CARDIOVASCULAR: regular rate and rhythm
ABDOMEN/: soft, non-distended, non-tender to palpation, no rebound or guarding
EXTREMITIES: Right upper extremity with normal appearance of the shoulder, full range of motion passive and active, neurovascularly intact, small superficial lump to the scapular region, no obvious bruising or or appearance of muscle rupture
NEUROLOGIC: awake and alert, moves all extremities
SKIN: warm
Course
Orders/Labs/Results
Orders:
Orders
06/02/24 12:30
CR Shoulder, Trauma - Right Urgent
Comment:
Reason For Exam: pain
06/02/24 13:26
Ibuprofen [Motrin] 600 mg PO NOW STA
Vital Signs
Initial and Last Documented VS:
Initial Vital Signs
Temp Pulse Resp BP Pulse Ox
98.9 F 114 20 145/106 98
06/02/24 12:19 06/02/24 12:19 06/02/24 12:19 06/02/24 12:19 06/02/24 12:19
Last Documented Vital Signs
Temp Pulse Resp BP Pulse Ox
98.9 F 114 20 145/106 98
06/02/24 12:19 06/02/24 12:19 06/02/24 12:19 06/02/24 12:19 06/02/24 12:19
MDM/Problems Addressed
Differential Diagnosis Includes:
Patient is a 34-year-old man with history of prior shoulder and hip dislocation presenting to the emergency room with shoulder pain. Vitals are unremarkable and exam does show some pain over the right shoulder but it does not appear obviously
dislocated. There is a superficial lump to the posterior shoulder over the scapula. Differential consists of fracture versus dislocation that has been since reduced. Unclear the lump but it does appear like a lipoma. Could be a tear. Does not
seem consistent with an abscess. Will obtain x-ray.
*Critical Care Note
Total Time (30-74mins, 75-104mins- exclusive of procedures): Not Applicable
Update Note
Update Note:
X-ray per my interpretation with out any fractures or dislocation. Patient's pain has improved. Patient is stable for discharge. He will follow-up with orthopedic as well as PCP
ED Attending Note
-
Portions of this chart may have been created with voice recognition software.� Occasional wrong word or��sound alike� substitutions may have occurred due to the inherent limitations of voice recognition software.
Discharge Plan
Departure
Patient Disposition: Retirement
Date of Disposition: 06/02/24
Time of Disposition: 14:27
Patient with high blood pressure during this ER visit?: No
Discharge Problem:
Acute shoulder pain
Instructions: Muscle Strain (DC)
Prescriptions:
No Action
thiamine HCl (vitamin B1) 100 mg Tablet
100 mg PO DAILY
folic acid 1 mg Tablet
1 mg PO DAILY
gabapentin [Neurontin] 100 mg capsule
100 mg PO BID Qty: 60 0RF
acetaminophen [Tylenol Extra Strength] 500 mg tablet
1,000 mg feeding tube Q8HPRN PRN (Reason: Mild mod pain) Qty: 60 0RF
ibuprofen [Advil] 200 mg tablet
600 mg PO Q8H PRN (Reason: Sev pain) Qty: 10 0RF
Rx Instructions:
AVOID USING CONTINUOSULY FOR MORE THAN 5 DAYS
Referrals:
[facility] [Family Provider] -
Activity Restrictions/Additional Instructions:
Medically cleared to be discharged back to facility
Please make sure you follow-up with your clinical safety specialist regarding the arthritis in the shoulder pain. Please follow-up with your PCP about the lipomas
Interventions
Interventions:
*Risk Screen - Suicide Last Done: 06/02/24 12:19
*General Assessment Last Done: 06/02/24 12:19
*Neglect/Abuse Screening Last Done: 06/02/24 12:26
ED- Fall Risk Assessment Last Done: 06/02/24 12:40
ED-Musculoskeletal Assessment Last Done: 06/02/24 12:40
Discharge Date and Time
Print Language: WALLISIAN
[2024-06-02] MEDS: MOTRIN 600 MG PO (13:35)
== END 2024-06-02 14:45 ==
LOC: EMR 12:17
PROVIDERS: EMERGENCY PHYSICIAN Student in an Organized Health Care Education/Training Program
DX: M25.511 Pain in right shoulder (principal)
CPT/HCPCS: 99283; 73030